=== PATIENT | female | born 1975 | race Caucasian/White ===

== ENCOUNTER 2024-04-20 17:53 | Emergency (ER) | payer OTHER ==
[~2024-04-20] VITALS: Ht 165.1 cm; Wt 96.9 kg
--- NOTE | ~2024-04-20 | EKG ---
[facility] [address] [facility] [place], [place] [address] Draft EKG completed, results pending confirmation PATIENT NAME: AMADORGLENDA MENDEZ Electrocardiogram DATE OF : 73 PHYSICIAN: PRELIMINARY REPORT #: [id number] REPORT IS CONFIDENTIAL AND NOT TO BE RELEASED WITHOUT AUTHORIZATION
[2024-04-20] MEDS ORDERED: ondansetron HCL 4 MG/2 ML VIAL IV ONE ×2 (18:30→21:15)
[2024-04-20] MEDS ORDERED: LORazepam 2 MG/ML VIAL IV PRN (18:30)
[2024-04-20 18:39] LABS: BASOPHILS 0.3 % (0-2); EOSINOPHILS 0.5 % (0-6); HEMATOCRIT 34.9 % (35.0-50.0); HEMOGLOBIN 12.1 g/dL (12.0-18.0); LYMPHOCYTES 26.1 % (24-44); MCH 33.8 (27-36); MCHC 34.5 g/dl (30-36); MCV 97.9 fl (81-99); MONOCYTES 8.5 % (0-12); NEUTROPHILS 64.6 % (39-80); PLATELET COUNT 136 K/uL (140-440); RBC 3.57 M/ul (4.3-5.7); RDW 18.1 (10.5-15.0)
[2024-04-20] MEDS ORDERED: OXAZEPAM10 MG PO (18:47)
[2024-04-20] MEDS ORDERED: CHLORDIAZEPOXID25 MG PO (18:49)
[2024-04-20 18:50] LABS: ALBUMIN 2.6 g/dL (3.4-5.0); ALBUMIN/GLOBULIN RATIO 0.55 (1.1-2.4); ANION GAP 17.6 (7-21); BUN/CREATININE RATIO 2.83 (6.0-28.6); CALCIUM 8.4 mg/dL (8.5-10.1); CREATININE, SERUM 1.06 mg/dL (0.55-1.02); MAGNESIUM 1.7 mg/dL (1.8-2.4); POTASSIUM 3.6 mmol/L (3.5-5.1); PROTEIN, TOTAL 7.3 g/dL (6.4-8.2)
[2024-04-20] MEDS ORDERED: ONDANSETRON ODT8 MG PO (18:50)
[2024-04-20] MEDS ORDERED: HYDROXYZINE HCL50 MG PO (18:50)
[2024-04-20] MEDS ORDERED: ACETAMINOPHEN500 MG PO (18:53)
[2024-04-20] MEDS ORDERED: MOTRIN IB200 MG PO (18:54)
[2024-04-20] MEDS ORDERED: OMEPRAZOLE20 MG PO (18:54)
[2024-04-20] MEDS ORDERED: VITAMIN B-1100 M1 PO (18:56)
[2024-04-20] MEDS ORDERED: FOLIC ACID1 MG PO (18:56)
[2024-04-20] MEDS ORDERED: LEVOTHYROXINE125 MC1 PO (18:57)
[2024-04-20] MEDS ORDERED: MELATONIN3 M3 PO (18:58)
[2024-04-20] MEDS ORDERED: TRAZODONE HCL100 MG PO (18:58)
[2024-04-20] MEDS ORDERED: SODIUM CHLORIDE 0.9% 1,000 ML IV ONE (19:15)
[2024-04-20] MEDS ORDERED: KETOROLAC TROMETHAMINE 30 MG/ML VIAL IV ONE (19:15)
[2024-04-20] MEDS ORDERED: DIPHENOXYLATE/ATROPINE 1 EA TAB PO ONE (19:15)
[2024-04-20 20:11] LABS: PARTIAL THROMBOPLASTIN TIME 39.9 Sec (22.9-41.3)
[2024-04-20 20:12] LABS: INR 1.59 (0.80-1.30); PROTIME 18.1 Sec (11.2-14.2)
[2024-04-20 21:17] LABS: BILIRUBIN, URINE POSITIVE (negative); BLOOD/HGB, URINE NEGATIVE (Negative); KETONE, URINE SMALL (Negative); LEUK ESTERASE, URINE NEGATIVE (negative); NITRITE, URINE POSITIVE (negative); PH, URINE 6.5 (5-7)
[2024-04-20 21:27] LABS: BACTERIA, URINE 1+ /hpf (negative); CASTS, URINE HYALINE 3+ \\lpf; CRYSTALS, URINE NONE SEEN (0-1+); EPITHELIAL CELLS, URINE SQUAMOUS 1+ /lpf (0-1+)
[2024-04-20 21:28] LABS: COLLECTION TYPE, URINE CLEAN CATCH; REFLEX CULTURE, URINE Yes (No)
[2024-04-20] MEDS ORDERED: CEFTRIAXONE/SODIUM CHLORIDE 2 GM/100 ML PIGGYBACK IV ONE (21:45)
[2024-04-20 22:17] LABS: ACETAMINOPHEN 0 ug/mL (10-30); ALCOHOL, MEDICAL <3 ng/dL (<3)
[2024-04-20 22:20] LABS: SALICYLATE <0.2 mg/dL (2.8-20.0)
[2024-04-20] MEDS ORDERED: MAGNESIUM SULFATE 2 GM/50 ML BAG IV ONE (23:45)
[2024-04-21] MEDS ORDERED: LACTULOSE 20 GM/30 ML CUP PO ONE (01:30)
[2024-04-21] MEDS ORDERED: LORazepam 1 MG TAB PO PRN (01:45)
[2024-04-21] MEDS ORDERED: THIAMINE HCL 100 MG,FOLIC ACID 1 MG,MULTIVITAMINS 10 ML in SODIUM CHLORIDE 0.9% 1,000 ML IV ONE (01:45)
[2024-04-21] MEDS ORDERED: LORazepam 2 MG/ML VIAL IV/IM PRN (01:45)
[2024-04-21] MEDS ORDERED: FOLIC ACID 1 MG/0.2 ML ML ONE (01:50)
[2024-04-21 06:13] LABS: PLATELET COUNT 121 K/uL (140-440)
[2024-04-21 06:15] LABS: BASOPHILS 0.3 % (0-2); EOSINOPHILS 0.8 % (0-6); HEMATOCRIT 31.5 % (35.0-50.0); LYMPHOCYTES 33.4 % (24-44); MCH 34.3 (27-36); MCHC 34.8 g/dl (30-36); MCV 98.6 fl (81-99); MONOCYTES 7.3 % (0-12); NEUTROPHILS 58.2 % (39-80); RBC 3.19 M/ul (4.3-5.7); RDW 18.6 (10.5-15.0)
[2024-04-21 06:24] VITALS: BP 95/81
[2024-04-21 06:24] LABS: ALBUMIN 2.3 g/dL (3.4-5.0); ALBUMIN/GLOBULIN RATIO 0.56 (1.1-2.4); BILIRUBIN, TOTAL 16.5 ng/dL (0.2-1.0); BUN/CREATININE RATIO 2.29 (6.0-28.6); CALCIUM 7.8 mg/dL (8.5-10.1); CREATININE, SERUM 0.87 mg/dL (0.55-1.02); PROTEIN, TOTAL 6.4 g/dL (6.4-8.2)
== END 2024-04-21 06:28 | disposition short-term general hospital (02) ==
LOC: ED 17:53
PROVIDERS: Emergency Medicine; Internal Medicine
DX: K70.40 Alcoholic hepatic failure without coma (principal); F10.939 Alcohol use, unspecified with withdrawal, unspecified; N39.0 Urinary tract infection, site not specified; Z91.51 Personal history of suicidal behavior; Z59.82 Transportation insecurity; Z88.2 Allergy status to sulfonamides; Z79.890 Hormone replacement therapy; Z79.899 Other long term (current) drug therapy
CPT/HCPCS: 36415; 74177; 76705; 80053; 81001; 82140; 83690; 83735; 84703; 85025; 85610; 85730; 93005; 93010; G0480; J0696; J2060; J2405; J3411; J3475; J7030; Q9967